=== PATIENT | male | born 1960 | race Caucasian/White ===

== ENCOUNTER → 2016-09-13 10:11 | Outpatient (CLI) | payer MEDICARE ==
[2012-05-01 08:13] VITALS: BMI 55.7
== END | disposition home or self-care (01) ==
LOC: D.CT 10:11
DX: R63.4 Abnormal weight loss (principal)

== ENCOUNTER → 2017-04-03 14:11 | Outpatient (CLI) | payer MEDICARE ==
[2012-05-01 08:13] VITALS: BMI 55.7
== END | disposition home or self-care (01) ==
LOC: D.MRI 14:00
DX: M54.16 Radiculopathy, lumbar region (principal)

== ENCOUNTER → 2017-10-02 10:09 | Outpatient (CLI) | payer MEDICARE, OTHER ==
[2012-05-01 08:13] VITALS: BMI 55.7
== END | disposition home or self-care (01) ==
LOC: D.MRI 09-18 08:30
DX: M54.16 Radiculopathy, lumbar region (principal)